=== PATIENT | male | born 2000 | race Caucasian/White ===

== ENCOUNTER 2021-02-25 10:11 | Emergency (ER) | payer OTHER ==
[2021-02-25 10:35] VITALS: BP 133/53
--- NOTE | 2021-02-25 11:51 | ED Physician Documentation ---
PD HPI CHEST PAIN - Stated complaint Stated Complaint: CHEST/BACK PX - Chief complaint Chief Complaint: General - History obtained from History obtained from: Patient - History of Present Illness Timing - onset: Today, Last night Timing - onset during: Rest Timing - details: Abrupt onset, Still present (he got Moderna 2nd vaccine yesterday and started feeling aches/fevers/chills/nausea and some back pain last night, worse today.) Quality: Aching. No: Pressure, Tightness Location: Upper back Improved by: No: Rest Worsened by: Exertion, Inspiration, Movement. No: Eating Associated symptoms: Nausea, General Weakness, Other (fevers). No: Shortness of air, Vomiting Similar symptoms before: Has not had sx before Recently seen: Clinic (COVID vaccine yesterday) Review of Systems Constitutional: reports: Fever, Chills, Myalgias Nose: denies: Rhinorrhea / runny nose, Congestion Throat: denies: Sore throat Cardiac: reports: Chest pain / pressure Respiratory: denies: Cough GI: reports: Nausea. denies: Abdominal Pain, Vomiting, Diarrhea Skin: denies: Rash, Lesions Musculoskeletal: reports: Back pain PD PAST MEDICAL HISTORY - Past Medical History Past Medical History: No - Present Medications Home Medications: Ambulatory Orders Medication Instructions Recorded Confirmed Ibuprofen [Motrin] 600 mg PO TID PRN #15 tab 02/25/21 Ondansetron Odt [Zofran] 4 mg TL Q6H PRN #10 tablet 02/25/21 - Allergies Allergies/Adverse Reactions: Allergies Allergy/AdvReac Type Severity Reaction Status Date / Time No Known Drug Allergies Allergy Verified 02/25/21 10:35 PD ED PE NORMAL - Vitals Vital signs reviewed: Yes - General General: Alert and oriented X 3, No acute distress, Well developed/nourished - Neck Neck: Supple, no meningeal sign, No adenopathy - Cardiac Cardiac: No murmur. No: RRR (regular but tachycardic) - Respiratory Respiratory: Clear bilaterally - Abdomen Abdomen: Soft, Non tender - Derm Derm: Normal color, Warm and dry, No rash PD MEDICAL DECISION MAKING - ED course Complexity details: considered differential (feeling fevers and aches particularly back pain, after vaccine yesterday. nausea without vomiting. Tachycardic. Offered IV fluids/meds, but he opted for PO. ), d/w patient Departure - Departure Disposition: 01 Home, Self Care Clinical Impression: COVID-19 vaccine series completed Vaccine reaction Qualifiers: Encounter type: initial encounter Qualified Code(s): T50.Z95A - Adverse effect of other vaccines and biological substances, initial encounter Condition: Stable Record reviewed to determine appropriate education?: Yes Prescriptions: Ibuprofen [Motrin] 600 mg PO TID PRN #15 tab PRN Reason: Pain Ondansetron Odt [Zofran] 4 mg TL Q6H PRN #10 tablet PRN Reason: Nausea / Vomiting Comments: Stay well-hydrated with frequent fluids. Ondansetron if needed for nausea. Ibuprofen three times a day for aches and pains. Add Tylenol if needed. The symptoms you're having are common after the Covid vaccine and typically lasts for a couple of days. Off work today and tomorrow to accommodate feeling bad with symptoms. Recheck if not better over the next several days. On the right side, the symptoms mean your immune system is responding well to the vaccine and should provide good protection. Forms: Activity restrictions Discharge Date/Time: 02/25/21 12:45
[2021-02-25] MEDS ORDERED: ACETAMINOPHEN 325 MG TABLET PO STA (12:05)
[2021-02-25] MEDS ORDERED: ONDANSETRON ODT 4 MG TABLET TL STA (12:05)
[2021-02-25] MEDS ORDERED: KETOROLAC 30 MG/ML VIAL IM STA (12:05)
== END 2021-02-25 12:45 | disposition home or self-care (01) ==
LOC: ED 10:11
DX: M54.6 Pain in thoracic spine (principal); R11.0 Nausea; R50.9 Fever, unspecified; T50.Z95A Adverse effect of other vaccines and biological substances, initial encounter
CPT/HCPCS: 96372; 99283; 99284; A9270; Q0162

== ENCOUNTER 2022-09-25 18:25 | Emergency (ER) | payer OTHER ==
[2022-09-25 18:41] VITALS: BP 149/74
[2022-09-25] MEDS ORDERED: CYCLOBENZAPRINE 10 MG TABLET PO STA (19:54)
[2022-09-25] MEDS ORDERED: IBUPROFEN 800 MG TABLET PO STA (19:54)
--- NOTE | 2022-09-25 19:56 | ED Physician Documentation ---
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 It was not heavy. He felt a pop in his back. Briefly he had numbness in both legs. Subsequent to that the pain is significant if he bends or twist. Not too bad at rest. He tried Tylenol which was not effective. He denies weakness, numbness, tingling, saddle anesthesia, incontinence, fevers. No history of back pain. No history of IV drug use. PD PAST MEDICAL HISTORY - Present Medications Home Medications: Ambulatory Orders Medication Instructions Recorded Confirmed Ibuprofen [Motrin] 600 mg PO TID PRN #15 tab 02/25/21 Ondansetron Odt [Zofran] 4 mg TL Q6H PRN #10 tablet 02/25/21 Cyclobenzaprine [Flexeril] 10 mg PO TID PRN #20 tablet 09/25/22 Ibuprofen [Motrin] 800 mg PO Q8H PRN #30 tablet 09/25/22 - Allergies Allergies/Adverse Reactions: Allergies Allergy/AdvReac Type Severity Reaction Status Date / Time No Known Drug Allergies Allergy Verified 09/25/22 18:41 - Social History Does the pt smoke?: No Smoking Status: Never smoker PD ED PE NORMAL - Vitals Vital signs reviewed: Yes - General General: Alert and oriented X 3, Other (x) - Back Back: Other (Palpable muscular tenderness of the low lumbar spine) - Extremities Extremities: Other (The patient has equal and normal Achilles and patellar reflexes bilaterally. Normal sensation in all areas of the legs. Patient denies saddle anesthesia. Normal strength in flexion-extension at the ankles, knees, and flexion of the hips.) - Neuro Neuro: Alert and oriented X 3, Normal speech Results - Vitals Vitals: Vital Signs - 24 hr 09/25/22 18:38 Temperature 36.8 C Heart Rate 89 Respiratory 16 Rate Blood Pressure 149/74 H O2 Saturation 97 Oxygen O2 Source Room air PD Medical Decision Making - ED course ED course: This patient has seemingly uncomplicated musculoskeletal back pain. The patient has no "red flags." Specifically denies IV drug use, fevers, incontinence, saddle anesthesia. Spinal epidural abscess was considered, given that the patient has no fever, is not diabetic, has no spinal tenderness, does not use IV drugs, and has no bilateral neurologic symptoms, the diagnosis of spinal epidural abscess is considered exceedingly unlikely. Departure - Departure Disposition: 01 Home, Self Care Clinical Impression: Lumbago Condition: Good Record reviewed to determine appropriate education?: Yes Instructions: ED Low Back Pain Injury Prescriptions: Cyclobenzaprine [Flexeril] 10 mg PO TID PRN #20 tablet PRN Reason: Spasms Ibuprofen [Motrin] 800 mg PO Q8H PRN #30 tablet PRN Reason: PAIN &/OR FEVER Comments: Follow-up with your doctor midweek, return for new or worsening symptoms. Forms: Activity restrictions Discharge Date/Time: 09/25/22 20:43
== END 2022-09-25 20:43 | disposition home or self-care (01) ==
LOC: ED 18:25
DX: M54.50 Low back pain, unspecified (principal)
CPT/HCPCS: 99282; 99283; A9270